=== PATIENT | female | born 1950 | race Two or more races ===

== ENCOUNTER 2020-10-21 10:30 | Inpatient (IN) | payer OTHER ==
[~2020-10-21] VITALS: Ht 157.5 cm; Wt 71.7 kg
[2020-10-21] MEDS ORDERED: ISORBIDE PO (13:44)
[2020-10-21] MEDS ORDERED: TOPROL XL50 M1 PO (13:45)
[2020-10-21] MEDS ORDERED: METFORMIN HCL500 MG PO (13:45)
[2020-10-21] MEDS ORDERED: FOLIC PO (13:46)
[2020-10-21] MEDS ORDERED: SINGULAIR 10MG10 MG PO (13:46)
[2020-10-21] MEDS ORDERED: ATORVASTATIN CA40 MG PO (13:47)
[2020-10-21] MEDS ORDERED: SERTRALINE20 MG/1 ML PO (13:47)
[2020-10-21] MEDS ORDERED: ZOLOFT25 MG PO (13:48)
[2020-10-21] MEDS ORDERED: HORIZANT600 MG PO (13:48)
[2020-10-27] MEDS ORDERED: FOLIC ACID1 MG (07:58)
[2020-10-27] MEDS ORDERED: ISOSORBIDE DINI30 MG PO (07:59)
[2020-10-29] MEDS ORDERED: ELIQUIS2.5 MG PO (13:51)
[2020-10-29] MEDS ORDERED: PERCOCET 5-3251 EACH PO (13:51)
[2020-10-29] MEDS ORDERED: CEFADROXIL500 MG PO (13:51)
== END 2020-10-29 15:55 | DRG 470 ==
LOC: O/R 10-27 06:25 → SURG 10-27 06:25 → SURH 10-27 10:30 → SURG 10-27 13:17 → SURH 10-27 14:00 → SURG 10-29 15:55
PROVIDERS: ADMIT Orthopaedic Surgery; ATTEND Orthopaedic Surgery
PROC: 0SRD0J9 Replacement of Left Knee Joint with Synthetic Substitute, Cemented, Open Approach (ICD-10-PCS; principal; 2020-10-27 14:00)
DX: M17.12 Unilateral primary osteoarthritis, left knee (principal); D62 Acute posthemorrhagic anemia; E11.9 Type 2 diabetes mellitus without complications; I10 Essential (primary) hypertension; F32.9 Major depressive disorder, single episode, unspecified; I25.10 Atherosclerotic heart disease of native coronary artery without angina pectoris

== ENCOUNTER 2020-12-02 17:15 | Inpatient (IN) | payer OTHER ==
[~2020-12-02] VITALS: Ht 157.5 cm; Wt 71.7 kg
[~2020-12-02 17:15] MED LIST: ATORVASTATIN CA40 MG PO; CEFADROXIL500 MG PO; ELIQUIS2.5 MG PO; FOLIC ACID1 MG; FOLIC PO; HORIZANT600 MG PO; ISORBIDE PO; ISOSORBIDE DINI30 MG PO; METFORMIN HCL500 MG PO; PERCOCET 5-3251 EACH PO; SERTRALINE20 MG/1 ML PO; SINGULAIR 10MG10 MG PO; TOPROL XL50 M1 PO; ZOLOFT25 MG PO
--- NOTE | 2020-12-02 17:30 | NUR ---
PTE ALERTA Y ORIENTADA X 3 ESFERAS EN [place] EN COMPANIA DE FAMILIAR.LA MISMA REFIERE RE-EMPLAZO DE RODILLA LT EL [address] [place],REFIERE HACE 1 SEMANA COMENZO AREA A INFLAMRASE Y EBONY.
--- NOTE | 2020-12-02 18:36 | NUR ---
SE LE ORIENTA PTE SOBRE TRATAMIENTO A SEGUIR, TOYA REFIERE ENTENDER. SE LE COLECTA MUESTRAS, SE CANALIZA Y SE ADMINISTRA MEDICAMENTO JESSICA ORDEN MEDICA.
--- NOTE | 2020-12-02 23:38 | NUR ---
SE RECIBE FEMINA ALERTA Y ORIENTADA POR TIFFANI ESFERAS, EN CHRISTOPHER CON BARANDAS ELEVADAS. AREA DE VENOPUNCION ANTHONY DE EDEMA O ENROJECIMIENTO. RECIBIENDO IVF ORDENADO. SE MANTIENE EN ESPERA DE MEDICOS CONSULTADOS.
--- NOTE | 2020-12-03 02:00 | NUR ---
PACIENTE REFIERE QUE SE LE HACE INCOMODO TENER VENOPUNCION EN ANTEBRAZO OSVALDO. VENOPUNCION PATENTE Y ANTHONY DE EDEMA O ENROJECIMIENTO. SE REMUEVE LA MISMA Y SE CANALIZA EN MANO DERECHA CON AREA DE VENOPUNCION ANTHONY DE EDEMA O ENROJECIMIENTO.
[2020-12-09] MEDS ORDERED: PERCOCET 5-3251 EACH PO (08:36)
[2020-12-09] MEDS ORDERED: CEFDINIR300 MG PO (08:36)
== END 2020-12-09 12:21 | disposition home or self-care (01) | DRG 560 ==
LOC: ER 17:15 → SEC-K 12-03 11:06 → SURH 12-03 11:06
PROVIDERS: ADMIT Orthopaedic Surgery; ATTEND Orthopaedic Surgery
DX: T84.54XA Infection and inflammatory reaction due to internal left knee prosthesis, initial encounter (principal); L03.116 Cellulitis of left lower limb; Z96.652 Presence of left artificial knee joint; E11.9 Type 2 diabetes mellitus without complications; I11.9 Hypertensive heart disease without heart failure; I25.10 Atherosclerotic heart disease of native coronary artery without angina pectoris; Z20.822 Contact with and (suspected) exposure to COVID-19

== ENCOUNTER 2021-03-02 11:23 | Outpatient (CLI) | payer OTHER ==
[~2021-03-02 11:23] MED LIST changes: +CEFDINIR300 MG PO
== END 2021-03-02 11:37 | disposition home or self-care (01) ==
LOC: RAD 11:23
PROVIDERS: ATTEND Orthopaedic Surgery
DX: M16.11 Unilateral primary osteoarthritis, right hip (principal); M25.561 Pain in right knee; M54.59 Other low back pain

== ENCOUNTER 2021-03-15 07:35 | Outpatient (CLI) | payer OTHER | END 2021-03-15 07:41 | disposition home or self-care (01) | LOC: RAD 07:35 | PROVIDERS: ATTEND Orthopaedic Surgery | DX: M16.11 Unilateral primary osteoarthritis, right hip (principal); M19.09 Primary osteoarthritis, other specified site ==

== ENCOUNTER 2022-06-14 13:28 | Emergency (ER) | payer OTHER ==
[~2022-06-14] VITALS: Ht 167.6 cm; Wt 70.8 kg
== END 2022-06-14 17:14 | disposition home or self-care (01) ==
LOC: ER 13:28
DX: M54.50 Low back pain, unspecified (principal)

== ENCOUNTER 2022-08-23 07:44 | Inpatient (IN) | payer OTHER ==
[~2022-08-23] VITALS: Ht 157.5 cm; Wt 0.5 kg
[2022-09-01] MEDS ORDERED: PERCOCET 5-3251 EACH PO (17:52)
[2022-09-01] MEDS ORDERED: ELIQUIS2.5 MG PO (17:52)
[2022-09-01] MEDS ORDERED: DUI500 PO (17:52)
== END 2022-09-01 19:12 | DRG 470 ==
LOC: O/R 08-30 06:05 → SURH 08-30 08:00 → O/R 08-30 12:50 → SURG 08-30 17:01 → SURH 08-30 18:15 → SURG 09-01 19:12
PROVIDERS: ADMIT Orthopaedic Surgery; ATTEND Orthopaedic Surgery
PROC: 0MNN4ZZ Release Right Knee Bursa and Ligament, Percutaneous Endoscopic Approach (ICD-10-PCS; 2022-08-30)
PROC: 0SRC0J9 Replacement of Right Knee Joint with Synthetic Substitute, Cemented, Open Approach (ICD-10-PCS; principal; 2022-08-30 18:15)
DX: M17.11 Unilateral primary osteoarthritis, right knee (principal); M22.11 Recurrent subluxation of patella, right knee; M81.0 Age-related osteoporosis without current pathological fracture; E11.9 Type 2 diabetes mellitus without complications; Z79.4 Long term (current) use of insulin; I10 Essential (primary) hypertension; D64.9 Anemia, unspecified

== ENCOUNTER 2022-09-30 11:06 | Emergency (ER) | payer OTHER ==
[~2022-09-30] VITALS: Ht 149.9 cm; Wt 62.1 kg
[~2022-09-30 11:06] MED LIST changes: +DUI500 PO
[2022-09-30] MEDS ORDERED: ECOTRIN81 MG PO (11:28)
== END 2022-09-30 14:50 | disposition home or self-care (01) ==
LOC: ER 11:06
DX: M25.511 Pain in right shoulder (principal); E11.9 Type 2 diabetes mellitus without complications; Z79.84 Long term (current) use of oral hypoglycemic drugs; I10 Essential (primary) hypertension